=== PATIENT | female | born 1970 | race African-American/Black ===

== ENCOUNTER 2024-02-01 08:27 | Emergency (ER) | payer OTHER ==
[~2024-02-01] VITALS: Ht 160 cm; Wt 56.7 kg
[2024-02-01 13:35] VITALS: BP 133/69; TEMP 98.2; O2SAT 97
== END 2024-02-01 13:36 | disposition home or self-care (01) ==
LOC: ER 08:27
DX: E04.1 Nontoxic single thyroid nodule (principal)
CPT/HCPCS: A4606; A4663